=== PATIENT | male | born 1975 | race American Indian/Alaskan Native ===

== ENCOUNTER 2020-03-25 15:33 | Emergency (ER) | payer BC ==
[~2020-03-25] VITALS: Ht 348 cm; Wt 124.7 kg
[~2020-03-25 15:33] MED LIST: ADVIL100 M1; CIPRO500 MG PO; FLAGYL500 MG PO; NORCO 5-325 TA1 EACH PO; TYLENOL325 M1
--- NOTE | 2020-03-26 13:35 | EKG ---
[facility] [address] [facility] [place], [place] [address] Signed Sinus tachycardia Inferior infarct , age undetermined Abnormal ECG No previous ECGs available Confirmed by LEOBARDO BERGER DO ([id number]) on 03/26/2020 1:35:21 PM Electronically Signed By: LEOBARDO BERGER DO 03/26/20 1335 PATIENT NAME: EUFEMIA MONSON Electrocardiogram DATE OF : 79 PHYSICIAN: LEOBARDO BERGER DO REPORT #: [id number] REPORT IS CONFIDENTIAL AND NOT TO BE RELEASED WITHOUT AUTHORIZATION
== END 2020-03-25 17:51 | disposition home or self-care (01) ==
LOC: ED 15:33
DX: F41.9 Anxiety disorder, unspecified (principal); I10 Essential (primary) hypertension; Z20.828 Contact with and (suspected) exposure to other viral communicable diseases
CPT/HCPCS: 71045; 80053; 84484; 85025; 93005; 93010; 96374; 99285-25; C9803; J2060; U0002

== ENCOUNTER 2022-11-11 05:40 | Day surgery (SDC) | payer BC ==
[~2022-11-11] VITALS: Ht 170.2 cm; Wt 122.2 kg
--- NOTE | 2022-11-11 07:31 | NUR ---
11/11/22 0731 Oksana Stokes 0727- PT ARRIVES TO PACU AWAKE AND TALKING. PT REPORTS NO PAIN OR NAUSEA. RESP EVEN AND UNLABORED. OXYGEN SAT MID TO HIGH 90'S ON RA. 0729- ICE PACK APPLIED TO PT'S LEFT WRIST WITH BARRIER IN BETWEEN SKIN AND ICE PACK.
[2022-11-11] MEDS ORDERED: HYDROCODON-ACE1 EA10 PO (07:38)
--- NOTE | 2022-11-11 09:20 | OR ---
[facility] [address] [place], [place] [address] Signed DATE OF OPERATION: 11/11/2022 SURGEON: Lydia Chu MD PREOPERATIVE DIAGNOSIS: Carpal tunnel syndrome, left. POSTOPERATIVE DIAGNOSIS: Carpal tunnel syndrome, left. PROCEDURE PERFORMED: Carpal tunnel release, left. GENERAL DENTIST/OWNER: None. ANESTHESIA: [place] block. TOURNIQUET TIME: 13 minutes. BRIEF HISTORY: Eufemia is a 47-year-old gentleman with progressive pain and numbness in his hand. Nerve conduction studies confirmed carpal tunnel and he wished to proceed. DESCRIPTION OF PROCEDURE: Once consent was obtained, he was taken to the operating room. After adequate anesthesia, he was placed on the operating room table. All downside pressure points were well padded. The left arm was prepped and draped in a standard sterile fashion. A 1.5 cm incision was made in the distal wrist crease and carried through the skin and subcutaneous tissue. The palmaris longus was identified, retracted and protected. The transverse carpal ligament was identified under loupe magnification and was dissected free of overlying soft tissue distally and proximally. It was released proximally a cm and distally to the distal extent. Careful probing with the [place] elevator showed the ligament to be completely released. The wound was then copiously irrigated with normal saline and closed with 3-0 nylon and injected with 9 mL of 0.25% plain Marcaine. The wound was dressed with bacitracin, Adaptic, 4 x 8s, and gauze. He tolerated the procedure well. All sponge, needle, and instrument counts were correct. Electronically Signed By: LYDIA CHU MD 11/11/22 0920 PATIENT NAME: EUFEMIA MONSON OPERATIVE REPORT DATE OF : 79 REPORT #: [id number] PHYSICIAN: LYDIA CHU MD PCP: NO PRIMARY CARE PHYSICIAN REPORT IS CONFIDENTIAL AND NOT TO BE RELEASED WITHOUT AUTHORIZATION [address] [address] Signed Lydia Chu MD /[facility] /[id number] Copies: ~ Electronically Signed By: LYDIA CHU MD 11/11/22 0920 PATIENT NAME: EUFEMIA MONSON OPERATIVE REPORT DATE OF : 79 REPORT #: [id number] PHYSICIAN: LYDIA CHU MD PCP: NO PRIMARY CARE PHYSICIAN REPORT IS CONFIDENTIAL AND NOT TO BE RELEASED WITHOUT AUTHORIZATION
== END 2022-11-11 08:03 | disposition home or self-care (01) ==
LOC: DS 05:40
PROVIDERS: ATTEND Specialist
PROC: 01N50ZZ Release Median Nerve, Open Approach (ICD-10-PCS; principal; 2022-11-11 07:00)
DX: G56.02 Carpal tunnel syndrome, left upper limb (principal)
CPT/HCPCS: J0690; J2001; J2704; J7121

== ENCOUNTER 2023-03-30 09:47 | Emergency (ER) | payer BC ==
[~2023-03-30] VITALS: Ht 170.2 cm; Wt 129.7 kg
[~2023-03-30 09:47] MED LIST changes: +HYDROCODON-ACE1 EA10 PO
[2023-03-30 12:00] VITALS: BP 207/111
--- NOTE | 2023-03-30 22:53 | EKG ---
[facility] [address] [facility] [place] [address] Signed Normal sinus rhythm Right bundle branch block T wave abnormality, consider inferior ischemia Abnormal ECG When compared with ECG of 25-MAR-2020 15:44, Right bundle branch block is now present Criteria for Inferior infarct are no longer present Confirmed by Evelyn Brooks MD () on 03/30/2023 10:53:49 PM Electronically Signed By: EVELYN BROOKS MD 03/30/23 2253 PATIENT NAME: ELZA MONSONERICK BRUNNERAL Electrocardiogram DATE OF : 79 PHYSICIAN: EVELYN BROOKS MD REPORT #: [id number] REPORT IS CONFIDENTIAL AND NOT TO BE RELEASED WITHOUT AUTHORIZATION
== END 2023-03-30 12:00 | disposition home or self-care (01) ==
LOC: ED 09:47
DX: R06.02 Shortness of breath (principal); I10 Essential (primary) hypertension; R73.03 Prediabetes; Z79.899 Other long term (current) drug therapy
CPT/HCPCS: 36415; 71045; 80053; 83880; 84484; 85025; 85379; 93005; 93010; 99285 25

== ENCOUNTER 2024-06-15 10:16 | Emergency (ER) | payer BC ==
[~2024-06-15] VITALS: Ht 170.2 cm; Wt 102.6 kg
[2024-06-15 10:41] LABS: BASOPHILS 0.7 % (0-2); EOSINOPHILS 4.3 % (0-6); HEMATOCRIT 44.3 % (35.0-50.0); HEMOGLOBIN 15.1 g/dL (12.0-18.0); LYMPHOCYTES 21.3 % (24-44); MCH 31.9 (27-36); MCV 93.9 fl (81-99); MONOCYTES 11.3 % (0-12); NEUTROPHILS 62.4 % (39-80); PLATELET COUNT 113 K/uL (140-440); RBC 4.72 M/ul (4.3-5.7); RDW 13.7 (10.5-15.0)
[2024-06-15 10:44] LABS: INR 1.13 (0.80-1.30); PROTIME 14.1 Sec (11.2-14.2)
[2024-06-15 10:46] LABS: PARTIAL THROMBOPLASTIN TIME 28.2 Sec (22.9-41.3)
[2024-06-15 10:58] LABS: ALBUMIN/GLOBULIN RATIO 0.93 (1.1-2.4); BILIRUBIN, TOTAL 1.5 ng/dL (0.2-1.0); BUN/CREATININE RATIO 11.25 (6.0-28.6); CALCIUM 9.1 mg/dL (8.5-10.1); CREATININE, SERUM 0.8 mg/dL (0.70-1.30); MAGNESIUM 1.6 mg/dL (1.8-2.4); PROTEIN, TOTAL 8.3 g/dL (6.4-8.2); TSH, 3RD GENERATION 2.392 uIU/mL (0.358-3.740)
[2024-06-15] MEDS ORDERED: hydrALAZINE HCL 20 MG/ML VIAL IV ONE (13:00)
[2024-06-15] MEDS ORDERED: METOPROLOL TARTRATE 5 MG/5 ML VIAL IV ONE (14:30)
[2024-06-15] MEDS ORDERED: LORazepam 2 MG/ML VIAL IV ONE (14:45)
[2024-06-15] MEDS ORDERED: LABETALOL HCL 20 MG/4 ML VIAL IV ONE (15:30)
[2024-06-15 16:38] LABS: AMPHETAMINES, URINE NEGATIVE (NEGATIVE); BARBITURATES, URINE NEGATIVE (NEGATIVE); BENZODIAZEPINE, URINE NEGATIVE (NEGATIVE); BUPRENORPHINE, URINE NEGATIVE (NEGATIVE); CANNABINOID, URINE NEGATIVE (NEGATIVE); COCAINE, URINE NEGATIVE (NEGATIVE); ECSTASY, URINE NEGATIVE (NEGATIVE); FENTANYL, URINE NEGATIVE (NEGATIVE); METHADONE, URINE NEGATIVE (NEGATIVE); OPIATES, URINE NEGATIVE (NEGATIVE); OXYCODONE, URINE NEGATIVE (NEGATIVE); PHENCYCLIDINE, URINE NEGATIVE (NEGATIVE)
[2024-06-15] MEDS ORDERED: PAXLOVID 300-11 EAC1 PO (16:54)
[2024-06-15 17:09] VITALS: BP 167/93
--- NOTE | 2024-06-16 21:02 | EKG ---
[facility] [address] [facility] [place], [place] [address] Signed Sinus tachycardia Indeterminate axis Right bundle branch block Abnormal ECG No previous ECGs available Confirmed by Karson Howell MD ([id number]) on 06/16/2024 9:02:08 PM Electronically Signed By: KARSON HOWELL MD 06/16/242101 PATIENT NAME: EUFEMIA MONSON Electrocardiogram DATE OF : 79 PHYSICIAN: KARSON HOWELL MD REPORT #: [id number] REPORT IS CONFIDENTIAL AND NOT TO BE RELEASED WITHOUT AUTHORIZATION
== END 2024-06-15 17:00 | disposition home or self-care (01) ==
LOC: ED 10:16
PROVIDERS: Emergency Medicine
DX: R00.2 Palpitations (principal); U07.1 COVID-19; I16.0 Hypertensive urgency; R73.03 Prediabetes; I10 Essential (primary) hypertension; Z90.49 Acquired absence of other specified parts of digestive tract
CPT/HCPCS: 36415; 71260; 80053; 80307; 83735; 83880; 84443; 84484; 85025; 85610; 85730; 93005; 93010; 99284-25; J0360; J2060; Q9967; U0002

== ENCOUNTER 2025-06-20 07:25 | Day surgery (SDC) | payer BC ==
[~2025-06-20] VITALS: Ht 170.2 cm; Wt 114.0 kg
[~2025-06-20 07:25] MED LIST changes: +CEFAZOLIN SODIUM 2 GM in SODIUM CHLORIDE 0.9% 100 ML IV SCH; +IBLOOD GLUCOSE TEST STRIP 1 EA TEST VI PRN; +LACTATED RINGER'S 1,000 ML IV SCH; +LIDOCAINE HCL 1% 5 ML SDV INJ ONE; +MOUNJARO2.5 MG/0.5 SUB-Q; +PAXLOVID 300-11 EAC1 PO; +TOPROL XL200 MG PO; +ZESTRIL20 MG PO
[2025-06-20 07:45] VITALS: BP 147/84
[2025-06-20] MEDS ORDERED: HYDROCODONE/ACETA 5/325 TAB PO PRN (08:45)
[2025-06-20] MEDS ORDERED: MIDAZOLAM HCL 2 MG/2 ML VIAL ONE (09:00)
[2025-06-20] MEDS ORDERED: LIDOCAINE HCL 0.5% 50 ML SDV ONE (09:00)
[2025-06-20] MEDS ORDERED: KETOROLAC TROMETHAMINE 30 MG/ML VIAL ONE (09:00)
[2025-06-20] MEDS ORDERED: LIDOCAINE HCL 2% 5 ML SDV ONE (09:00)
[2025-06-20] MEDS ORDERED: KETAMINE in NS 50 MG/5 ML SYR ONE (09:00)
[2025-06-20] MEDS ORDERED: HYDROCODON-ACE1 EA10 PO (09:36)
--- NOTE | 2025-06-20 09:50 | NUR ---
06/20/25 0950 Stefani Caal 0937: PT ARRIVED TO PACU VIA STRETCHER. PT ON 6L VIA MASK. PT RESPONDING TO STIMULI AT THIS TIME. 0939: PT TITRATED TO RA AT THIS TIME. PT AWAKE AND TALKING 0945: PT REMAINS ON RA BUT NEEDING CONSTANT CUEING TO TAKE DEEP BREATHS. PT HAS FULL CONTROL OVER RIGHT ARM. DRESSING IS C/D/I. GOOD CAP REFIL.
[2025-06-20 10:17] VITALS: BP 141/92
--- NOTE | 2025-06-23 07:06 | OR ---
[facility] [address] [place], [place] [address] Signed DATE OF OPERATION: 06/20/2025 SURGEON: Lydia Cuh MD PREOPERATIVE DIAGNOSIS: Carpal tunnel syndrome, right. POSTOPERATIVE DIAGNOSIS: Carpal tunnel syndrome, right. PROCEDURE PERFORMED: Carpal tunnel release, right. DATA MODELING SPECIALIST: None. ANESTHESIA: [place] block. TOURNIQUET TIME: 15 minutes. BRIEF HISTORY: Samy is a 49-year-old gentleman with pain and numbness in his hand. Nerve conduction studies were consistent with significant carpal tunnel. Risks, benefits, and alternatives of surgery were discussed with him and he elected to proceed. DESCRIPTION OF PROCEDURE: Once consent was obtained, he was taken to the operating room. After adequate anesthesia, he was placed on day surgery bed, taken to the OR and hand table was brought in. The arm was prepped and draped in a standard sterile fashion and the carpal tunnel was approached through a 1.5 cm incision in the distal wrist crease, carried through the skin and subcutaneous tissue. The palmaris longus was retracted and protected. The transverse carpal ligament was dissected free of overlying soft tissue under loupe magnification. It was then released proximally a cm and distally to the distal extent again under direct loupe magnification. This was palpated using a [place] and found to be completely released. The wound was copiously irrigated with normal saline, closed with 3-0 nylon and injected with 7 mL 0.25% plain Marcaine. Wound was dressed with bacitracin, Adaptic 4 x 8s, and gauze. He tolerated the procedure well. All sponge, needle, and instrument counts were correct. Electronically Signed By: LYDIA CHU MD 06/23/25 0706 PATIENT NAME: SAMY MONSON OPERATIVE REPORT DATE OF : 79 REPORT #: [id number] PHYSICIAN: LYDIA CHU MD PCP: ARMANDO GATICA MD REPORT IS CONFIDENTIAL AND NOT TO BE RELEASED WITHOUT AUTHORIZATION [address] [address] Signed Lydia Chu MD [facility] /[id number] Copies: ~ Electronically Signed By: LYDIA CHU MD 06/23/25 0706 PATIENT NAME: SAMY MONSON OPERATIVE REPORT DATE OF : 79 REPORT #: [id number] PHYSICIAN: LYDIA CHU MD PCP: GAVI,ARMANDO MD REPORT IS CONFIDENTIAL AND NOT TO BE RELEASED WITHOUT AUTHORIZATION
== END 2025-06-20 10:25 | disposition home or self-care (01) ==
LOC: DS 07:25
PROVIDERS: ATTEND Specialist
PROC: 01N50ZZ Release Median Nerve, Open Approach (ICD-10-PCS; principal; 2025-06-20 09:30)
DX: G56.01 Carpal tunnel syndrome, right upper limb (principal); Z79.899 Other long term (current) drug therapy; Z87.891 Personal history of nicotine dependence
CPT/HCPCS: 01810; J0688; J1885; J2003; J2250; J2405; J2704; J3490; J7121